=== PATIENT | female | born 1980 ===

== ENCOUNTER 2020-01-30 06:15 | Day surgery (SDC) | payer OTHER ==
[2020-01-30] MEDS ORDERED: MONDOXYNE NL100 MG PO (13:22)
[2020-01-30] MEDS ORDERED: Tylenol #3 PO (13:22)
== END 2020-01-30 15:50 | disposition home or self-care (01) ==
LOC: CIR.AMB 06:15
DX: O00.201 Right ovarian pregnancy without intrauterine pregnancy (principal); N83.12 Corpus luteum cyst of left ovary

== ENCOUNTER 2022-06-23 09:08 | Day surgery (SDC) | payer OTHER ==
[~2022-06-23 09:08] MED LIST: MONDOXYNE NL100 MG PO; Tylenol #3 PO
[2022-06-23] MEDS ORDERED: MORGIDOX100 MG PO (19:50)
== END 2022-06-23 22:00 | disposition home or self-care (01) ==
LOC: EDBD → CIR.AMB 09:08
PROVIDERS: ATTEND Obstetrics & Gynecology
DX: O02.1 Missed abortion (principal); Z20.822 Contact with and (suspected) exposure to COVID-19